=== PATIENT | female | born 2000 | race Caucasian/White ===

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

== ENCOUNTER 2021-02-07 23:02 | Emergency (ER) | payer OTHER ==
[2021-02-08 02:18] LABS: BASOPHIL 0.2 % (0-2); EOSINOPHIL 1.1 % (0-5); HCT 35.2 % (37.0-47.0); HGB 10.9 g/dl (12.5-16.0); LYMPHOCYTE 22.1 % (15-48); MCH 22.4 pg (25.0-31.0); MCV 72.3 fL (78.0-100.0); MONOCYTE 7.6 % (0-12); MPV 9.9 fL (6.0-9.5); NEUTROPHIL 68.7 % (41-80); NRBC 0; PLT 280 K/uL (150-400); RBC 4.87 M/uL (4.20-5.40); RDW 15.7 % (11.5-14.0); WBC 9.9 K/uL (4.0-10.5)
[2021-02-08 02:31] LABS: BILIRUBIN NEGATIVE (NEGATIVE); BLOOD NEGATIVE Ery/uL (NEGATIVE); CLARITY CLEAR (CLEAR); COLOR YELLOW (YELLOW); GLUCOSE (U) NORMAL (NORMAL); LEUKOCYTES NEGATIVE Leu/uL (NEGATIVE); NITRITE NEGATIVE (NEGATIVE); PROTEIN NEGATIVE (NEGATIVE); SPECIFIC GRAVITY >=1.030 (1.001-1.030); UROBILINOGEN 0.2 mg/dL (0.2-1.0)
[2021-02-08 02:40] LABS: ALBUMIN 3.3 g/dL (3.4-5.0); BILIRUBIN - TOTAL 0.3 mg/dL (0.2-1.0); BUN/CREAT RATIO (CALC) 16.3 RATIO; CREATININE 0.49 mg/dL (0.51-0.95); GLOBULIN (CALCULATION) 4.4 g/dL; TOTAL PROTEIN 7.7 g/dL (6.4-8.2)
== END 2021-02-08 04:52 | disposition home or self-care (01) ==
LOC: FER 23:02
PROVIDERS: Emergency Medicine
DX: O99.891 Other specified diseases and conditions complicating pregnancy (principal); R10.31 Right lower quadrant pain; R11.0 Nausea; R53.83 Other fatigue; Z3A.01 Less than 8 weeks gestation of pregnancy
CPT/HCPCS: 36415; 76817; 80053; 80178; 81003; 84702; 85025; 87210

== ENCOUNTER 2021-02-17 14:45 | Emergency (ER) | payer OTHER ==
[2021-02-17 15:59] LABS: BASOPHIL 0.2 % (0-2); EOSINOPHIL 1.1 % (0-5); HCT 38.2 % (37.0-47.0); HGB 11.8 g/dl (12.5-16.0); LYMPHOCYTE 20.2 % (15-48); MCH 22.4 pg (25.0-31.0); MCHC 30.9 g/dL (32.0-36.0); MCV 72.5 fL (78.0-100.0); MONOCYTE 7.8 % (0-12); MPV 10.3 fL (6.0-9.5); NEUTROPHIL 70.4 % (41-80); NRBC 0; PLT 265 K/uL (150-400); RBC 5.27 M/uL (4.20-5.40); RDW 15.7 % (11.5-14.0); WBC 9.3 K/uL (4.0-10.5)
[2021-02-17 16:22] LABS: BUN/CREAT RATIO (CALC) 5.6 RATIO; CREATININE 0.54 mg/dL (0.51-0.95); POTASSIUM 3.4 mmol/L (3.5-5.1)
[2021-02-17 16:27] LABS: BILIRUBIN 1+ mg/dL (NEGATIVE); BLOOD NEGATIVE Ery/uL (NEGATIVE); CLARITY CLEAR (CLEAR); COLOR YELLOW (YELLOW); GLUCOSE (U) NORMAL (NORMAL); LEUKOCYTES NEGATIVE Leu/uL (NEGATIVE); NITRITE NEGATIVE (NEGATIVE); PROTEIN TRACE (LOW) mg/dL (NEGATIVE); SPECIFIC GRAVITY >=1.030 (1.001-1.030)
[2021-02-17 16:36] LABS: BACTERIA 1+; URINARY RBC RARE; URINARY WBC RARE
[2021-02-17 16:37] LABS: CALCIUM OXALATE CRYSTALS MODERATE
== END 2021-02-17 20:15 | disposition home or self-care (01) ==
LOC: FER 14:45
PROVIDERS: Emergency Medicine
DX: O99.891 Other specified diseases and conditions complicating pregnancy (principal); R10.9 Unspecified abdominal pain; Z88.0 Allergy status to penicillin; Z88.6 Allergy status to analgesic agent; Z87.891 Personal history of nicotine dependence
CPT/HCPCS: 36415; 80048; 81001; 84702; 85025; 99284; J7030